=== PATIENT | male | born 1970 | race Caucasian/White ===

== ENCOUNTER 2021-02-05 10:50 | Inpatient (IN) | payer SELFPAY ==
[~2021-02-05] VITALS: Ht 162.6 cm; Wt 136.0 kg
[2021-02-05 12:03] LABS: BASO # 0.1 K/mm3 (0.0-0.2); BASO % 0.7 % (0.0-2.0); EOS # 0.3 K/mm3 (0.0-0.7); EOS % 2.8 % (0-4.0); GRAN # 6.8 K/mm3 (1.4-6.5); GRAN % 67.1 % (42.2-75.2); HEMATOCRIT 43.3 % (42.0-52.0); HEMOGLOBIN 13.6 g/dl (13.5-18.0); LYMPH # 2.1 K/mm3 (1.2-3.4); LYMPH % 20.5 % (20.0-51.0); MEAN CELL VOLUME 91 fl (80.0-100.0); MEAN CORPUSCULAR HEMOGLOBIN 29 pg (27.0-31.0); MEAN CORPUSCULAR HGB CONC 31 g/dl (33.0-37.0); MEAN PLATELET VOLUME 10.1 fl (7.4-10.4); MONO # 0.9 K/mm3 (0.1-0.6); MONO % 8.6 % (1.7-9.3); PLATELET COUNT 242 K/mm3 (130-400); RED BLOOD COUNT 4.75 M/mm3 (4.20-5.60); REDCELL DISTRIBUTION WIDTH-CV 14.4 % (11.5-14.5)
[2021-02-05 12:11] LABS: INR 1.2 (0.8-3.0); PROTHROMBIN TIME 13.1 SECONDS (9.7-12.8)
[2021-02-05 12:24] LABS: ALBUMIN 3.4 gm/dL (3.5-5.0); BILIRUBIN,TOTAL 0.7 mg/dL (0.2-1.2); CALCIUM 8.5 mg/dL (8.4-10.2); CREATININE, serum 1.1 mg/dL (0.72-1.25); POTASSIUM 5.1 mmol/L (3.5-4.5); TOTAL PROTEIN 6.7 gm/dL (6.2-8.1)
[2021-02-05 12:41] LABS: TSH w REFLEX 2.699 uIU/mL (0.350-4.940)
[2021-02-05 12:43] LABS: TROPONIN-I 0.039 ng/mL (0.00-0.033)
[2021-02-05 14:37] LABS: TRICYCLIC ANTIDEPRESS URINE NEGATIVE
[2021-02-05 20:30] VITALS: BP 158/115; PULSE 110; TEMP 98.1
--- NOTE | 2021-02-05 20:33 | NUR ---
PATIENT ARRIVES BY WHEEL CHAIR/ AMBULATES AROUND ROOM DENIES DISCOMFORT
[2021-02-05 21:00] VITALS: BP 119/94; PULSE 120; TEMP 98.1
[2021-02-06] VITALS (392 sets, daily range): BP systolic 120–186; BP diastolic 82–129; PULSE 96–110; TEMP 97.4–98.1; O2SAT 83–100
--- NOTE | 2021-02-06 04:57 | NUR ---
PATIENT HAS EATEN A FAIR AMOUNT OF FOOD DURING HIS STAY SO FAR/ DEMIES SYMPTOMS OR DISCOMFORT/SLEEPS BETWEEN DISTURBANCES
[2021-02-06 05:21] LABS: BASO # 0.1 K/mm3 (0.0-0.2); BASO % 0.6 % (0.0-2.0); EOS # 0.3 K/mm3 (0.0-0.7); EOS % 2.8 % (0-4.0); GRAN # 6.6 K/mm3 (1.4-6.5); GRAN % 70.9 % (42.2-75.2); HEMATOCRIT 40.4 % (42.0-52.0); LYMPH # 1.6 K/mm3 (1.2-3.4); LYMPH % 17.2 % (20.0-51.0); MEAN CELL VOLUME 88 fl (80.0-100.0); MEAN CORPUSCULAR HEMOGLOBIN 28 pg (27.0-31.0); MEAN CORPUSCULAR HGB CONC 32 g/dl (33.0-37.0); MEAN PLATELET VOLUME 10.6 fl (7.4-10.4); MONO # 0.8 K/mm3 (0.1-0.6); MONO % 8.2 % (1.7-9.3); PLATELET COUNT 279 K/mm3 (130-400); RED BLOOD COUNT 4.61 M/mm3 (4.20-5.60); REDCELL DISTRIBUTION WIDTH-CV 14.4 % (11.5-14.5)
[2021-02-06 05:44] LABS: CALCIUM 8.6 mg/dL (8.4-10.2); CREATININE, serum 1.15 mg/dL (0.72-1.25); POTASSIUM 4.6 mmol/L (3.5-4.5)
--- NOTE | 2021-02-06 11:45 | NUR ---
SW met with patient to complete intake. Patient states that he lives with his mother Marii Herrera [phone] in [facility]. patient provides that he does not utilize DME nor home health services and is independent with ADL's. Patient provides that he does not have a PCP. SW provided resource documenation of PCP's in the area. Patient provides that he does not have a DPOA-HC and wanted to appoint mother. Docuementation presented, reviewed, completed and signed by patient and nurse as witness. Original documenation placed in chart and copies made for patient. Patient states he plans to return home up [place] and has no concerns with doing so. SW will continue to follow DC plan: Home in [place]
--- NOTE | 2021-02-06 19:54 | NUR ---
ONCE PATIENT STARTED BACK ON NICARDIPINE 2.5 MG, BLOOD PRESSURE DECREASED AND WAS MONITORED/TITRATED TO KEEP HIS BLOOD PRESSURE CLOSE TO THE PARAMETERS OF AROUND 150 SYSTOLIC AND A MAP OF AROUND 100 (PER DR. MCCURDY). PATIENT ON ROOM AIR ALL DAY AND STAYED IN THE MID TO HIGH 90S; HEARTRATE WAS TACHY ALL DAY AND RAN IN BETWEEN 100S-110S.
--- NOTE | 2021-02-06 20:38 | NUR ---
PATIENT ASLEEP EASILY AWAKENS/ VITALS 185/108 P 110 RESP 18 TEMP 98.1 SATS 98 RA, ADMINISTERED 10 MG LABETALOL AT 2029 AT 2036 B/P 143/92 P 96 RESP 16 SATS 99 RA, WILL CONTINUE TO OBSERVE
--- NOTE | 2021-02-06 20:44 | NUR ---
PATIENT HAS EATEN 100% OF MEAL/ HAS FALLEN ASLEEP EASILY TO AWAKEN/ B/P ELEVATED 180/108 CARDENE DISCONTIUED/ ADMINSITERED 10 MG LABETALOL AWAITING RESULTS
[2021-02-07] VITALS (185 sets, daily range): BP systolic 120–186; BP diastolic 85–122; PULSE 90–100; TEMP 97.4–98.5; O2SAT 74–100
--- NOTE | 2021-02-07 00:24 | NUR ---
patient has been sleeping heavy for the last 4 hours: patient now is eating another meal,(sandwich,applesauce,cookie,milk). denies discomfort
--- NOTE | 2021-02-07 01:37 | NUR ---
B/P 180/110 98 P RESP 22 SATS 99 RA/ DENIES PAIN/ ANOTHER 10 MG LABATELOL 10 MG ADMINISTERED IV PER ORDER NOW
--- NOTE | 2021-02-07 01:42 | NUR ---
B/P 199/130 P 94 RESP 18 SATS 97%/ LABATALOL 10 NG IVP/ PATIENT IS AWAKE, DENIES DISCOMFORT/
[2021-02-07 04:32] LABS: BASO # 0.1 K/mm3 (0.0-0.2); BASO % 0.7 % (0.0-2.0); EOS # 0.4 K/mm3 (0.0-0.7); EOS % 3.2 % (0-4.0); GRAN # 7.4 K/mm3 (1.4-6.5); GRAN % 68.3 % (42.2-75.2); HEMATOCRIT 42.1 % (42.0-52.0); HEMOGLOBIN 13.2 g/dl (13.5-18.0); LYMPH % 18.5 % (20.0-51.0); MEAN CELL VOLUME 91 fl (80.0-100.0); MEAN CORPUSCULAR HEMOGLOBIN 29 pg (27.0-31.0); MEAN CORPUSCULAR HGB CONC 31 g/dl (33.0-37.0); MONO % 9.1 % (1.7-9.3); PLATELET COUNT 298 K/mm3 (130-400); RED BLOOD COUNT 4.63 M/mm3 (4.20-5.60); REDCELL DISTRIBUTION WIDTH-CV 14.5 % (11.5-14.5)
[2021-02-07 04:49] LABS: CALCIUM 9.1 mg/dL (8.4-10.2); CREATININE, serum 1.42 mg/dL (0.72-1.25)
--- NOTE | 2021-02-07 05:44 | NUR ---
VITALS AT 0537 ARE B\P 178/106 P 92 RESP 18 SATS 96 RA LABATELOL 10 MG ADMINISTERED IVP PER ORDER FOR ELEVATED B/P.
--- NOTE | 2021-02-07 08:24 | NUR ---
ULTRASOUND IS AT BEDSIDE
--- NOTE | 2021-02-07 09:23 | NUR ---
LINH met with patient to discuss financial options. Patient's financial status is self pay and per patient, he has never applied for Medicaid. LINH called Anthony and left to call me and discuss patient's situation.
--- NOTE | 2021-02-07 13:23 | NUR ---
PATIENT WAS MOVED TO MEDICAL FLOOR VIA WHEELCHAIR AT 1323. LANDRY MORAES RESUMED CARE OF PATIENT.
--- NOTE | 2021-02-07 22:20 | NUR ---
DENIES SOA WHEN SETTING STILL HOWEVER WHEN UP AMBULATING FEELS SOA, DENIES CHEST PAIN OR DISCOMFORT BUT CAN TELL HEART RATE IS ELEVATED HE STATES TONIGHT. EXPLAINED HENRY SCAN AND POSSIBLE HEART CATH TO PT. WILL BE NPO AT 12. PM MEDS GIVEN. SHOWERED. CALL LIGHT WI REACH. NEEDS MET.
[2021-02-08] VITALS (9 sets, daily range): BP systolic 117–166; BP diastolic 80–134; PULSE 85–96; TEMP 97.5–98.6
--- NOTE | 2021-02-08 05:20 | NUR ---
Pt has been NPO since midnight. No c.o chest pain or soa unless excerting. Needs met.
[2021-02-08 07:01] LABS: CALCIUM 9.3 mg/dL (8.4-10.2); CREATININE, serum 1.26 mg/dL (0.72-1.25); MAGNESIUM 2.3 mg/dL (1.6-2.6)
--- NOTE | 2021-02-08 11:25 | NUR ---
PT RESTING IN RECLINER. MORNING MEDICATION GIVEN. SHIFT ASSESSMENT COMPLETED. PT WAS PRETTY ANXIOUS PRIOR TO STRESS TEST, AFTER RETURNING HE IS FEELING FINE. DENIES ANY NEEDS AT THIS TIME. CONTINUING TO MONITOR.
[2021-02-08] MEDS ORDERED: NORVASC 5MG5 MG/TAB PO (13:39)
[2021-02-08] MEDS ORDERED: LOPRESSOR 225 MG/TAB PO (13:39)
[2021-02-08] MEDS ORDERED: PRINIVIL20 MG PO (13:41)
[2021-02-08] MEDS ORDERED: ASPIRIN 81M81 MG/TA2 PO (13:42)
[2021-02-08] MEDS ORDERED: LASIX 20MG TABL20 MG PO (13:42)
--- NOTE | 2021-02-08 14:14 | NUR ---
LINH spoke with Anthony in [facility] finance; she will be contacting family to discuss finances.
--- NOTE | 2021-02-08 15:11 | NUR ---
The patient is to discharge back home with his mother today, 02/08. He is need of a PCP. He is self pay. The patient is interested in getting set up at [facility] in . LINH contacted [facility] in and secured the patient an appointment there on Sunday, 02/18, at 0940. LINH notified the community health education coordinator of the appointment. LINH faxed the patient's records to [facility]. LINH also contacted the patient's preferred pharmacy and priced his meds. The pharmacist reports that the estimated cost for his meds is around $30-$35. LINH updated the patient and his mother. The patient's mother reports that they tracy be able to pay for his meds. No additional needs at this time.
== END 2021-02-08 15:33 | disposition home or self-care (01) | DRG 917 ==
LOC: COL.ER 10:50 → ICU 15:22 → MEDICAL 02-07 14:21
PROVIDERS: Family Medicine; Internal Medicine; ADMIT Student in an Organized Health Care Education/Training Program
DX: T43.621A Poisoning by amphetamines, accidental (unintentional), initial encounter (principal); I50.21 Acute systolic (congestive) heart failure; I21.A1 Myocardial infarction type 2; I16.1 Hypertensive emergency; N17.9 Acute kidney failure, unspecified; I42.0 Dilated cardiomyopathy; I11.0 Hypertensive heart disease with heart failure; G47.33 Obstructive sleep apnea (adult) (pediatric); E87.5 Hyperkalemia; F15.10 Other stimulant abuse, uncomplicated; Z20.822 Contact with and (suspected) exposure to COVID-19
CPT/HCPCS: 99223-AI; 99233-AI; 99239; A9500; J0360; J1644; J1940; J2785; J7050; Q9967